=== PATIENT | female | born 1990 | race Two or more races ===

== ENCOUNTER 2025-01-24 18:29 | Emergency (ER) | payer SELFPAY ==
[2025-01-24 18:36] VITALS: BP 146/95
[2025-01-24 20:50] VITALS: BP 145/91; BMI 27.3
[2025-01-24 21:00] VITALS: BP 138/82
[2025-01-24 22:00] VITALS: BP 128/92
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
[2025-01-24] MEDS: TYLENOL 1000 MG PO (22:28)
== END 2025-01-24 22:39 | disposition home or self-care (01) ==
LOC: EMR 18:29
PROVIDERS: EMERGENCY PHYSICIAN Student in an Organized Health Care Education/Training Program
DX: M25.512 Pain in left shoulder (principal); M25.562 Pain in left knee; R03.0 Elevated blood-pressure reading, without diagnosis of hypertension; V49.9XXA Car occupant (driver) (passenger) injured in unspecified traffic accident, initial encounter; Y92.410 Unspecified street and highway as the place of occurrence of the external cause
CPT/HCPCS: 99283; 73030; 73564